=== PATIENT | female | born 1980 | race Caucasian/White ===

== ENCOUNTER 2016-05-08 11:14 | Emergency (ER) | payer OTHER ==
[~2016-05-08] VITALS: Ht 157.5 cm; Wt 68.0 kg
[~2016-05-08 11:14] MED LIST: BACTRIM DS TAB1 EACH PO; BACTROBAN NASAL1 GM NS; CLEOCIN HCL300 MG PO; DARVOCET-N 1001 EACH PO; FLEXERIL PO; HYDROCODON-ACE1 EAC5; IBUPROFEN 600600 M1 PO; IBUPROFEN 800800 MG PO; NAPROSYN500 MG PO; NOHOMEMEDICATIONS; NORCO 5-325 TA1 EACH PO; PENICILLIN VK500 MG PO; PERCOCET 5-3251 EACH PO; PHENERGAN 25 MG25 M1 PO; PROAIR HFA8.5 GM; SYMBICORT160 MCG/4.; SYMBICORT160 MCG/4. INH; TRAMADOL 50 MG50 MG; XANAX 0.25 MG0.25 MG
[2016-05-08] MEDS ORDERED: AMOXICILLIN 50500 MG PO (12:06)
[2016-05-08] MEDS ORDERED: MOBIC7.5 MG PO (12:06)
== END 2016-05-08 13:23 | disposition home or self-care (01) ==
LOC: ER 11:14
DX: K02.9 Dental caries, unspecified (principal); K05.10 Chronic gingivitis, plaque induced; Q85.8 Other phakomatoses, not elsewhere classified; F17.210 Nicotine dependence, cigarettes, uncomplicated; Z85.53 Personal history of malignant neoplasm of renal pelvis; Z88.1 Allergy status to other antibiotic agents